=== PATIENT | female | born 1955 | race Caucasian/White ===

== ENCOUNTER 2018-12-28 12:06 | Inpatient (IN) ==
[2018-12-28] MEDS ORDERED: MAGNESIUM HYDROXIDE SUSP 30 ML UDCUP PO PRN (13:01)
[2018-12-28] MEDS ORDERED: ALPRAZolam 0.25 MG TABLET PO PRN (13:01)
[2018-12-28] MEDS ORDERED: chlorproMAZINE 25 MG TABLET PO PRN (13:01)
[2018-12-28] MEDS ORDERED: LOPERAMIDE 2 MG CAPSULE PO PRN ×2 (13:01)
[2018-12-28] MEDS ORDERED: ACETAMINOPHEN 325 MG TABLET PO PRN (13:01)
[2018-12-28] MEDS ORDERED: chlorproMAZINE INJ 25 MG in SODIUM CHLORIDE 0.9% 100 ML IV PRN (13:01)
[2018-12-28] MEDS ORDERED: MYLANTA/LIDO VISC 2:1 300 ML BOTTLE SWISH/SWAL PRN (13:01)
[2018-12-28] MEDS ORDERED: LACTULOSE 20 GM/30 ML UDCUP PO PRN (13:01)
[2018-12-28] MEDS ORDERED: MYLANTA/LIDO VISC 2:1 300 ML BOTTLE SWISH/SPIT PRN (13:01)
[2018-12-28] MEDS ORDERED: guaiFENesin 200 MG/10 ML UDCUP PO PRN (13:01)
[2018-12-28] MEDS ORDERED: traMADol 50 MG TABLET PO PRN (13:01)
[2018-12-28] MEDS ORDERED: chlorproMAZINE INJ 50 MG in SODIUM CHLORIDE 0.9% 100 ML IV PRN (13:01)
[2018-12-28] MEDS ORDERED: BENZTROPINE 2 MG/2 ML AMP IV PRN (13:01)
[2018-12-28] MEDS ORDERED: diphenhydrAMINE CAP 25 MG CAPSULE PO PRN (13:01)
[2018-12-28] MEDS ORDERED: DEXAMETHASONE 10 MG/1 ML VIAL IV ONE ×2 (13:04→13:30)
[2018-12-28] MEDS ORDERED: SODIUM CHLORIDE 0.45% 1,000 ML IV SCH (13:30)
[2018-12-28] MEDS: ONDANSETRON 4 MG/2 ML VIAL IV PRN (13:51)
[2018-12-28] MEDS: SODIUM CHLORIDE 0.45% 1,000 ML IV SCH (13:52)
[2018-12-28] MEDS: HYDROmorphone 2 MG/1 ML VIAL IV PRN ×2 (14:18→21:28)
[2018-12-28] MEDS: LORazepam 2 MG/1 ML VIAL IV PRN ×2 (15:58→21:21)
[2018-12-28] MEDS: oxyCODONE/ACETAMINOPHEN 5-325 MG TABLET PO PRN (17:44)
[2018-12-28] MEDS ORDERED: FONDAPARINUX 2.5 MG/0.5 ML SYRINGE SUBCUT SCH (19:00)
[2018-12-28] MEDS: PROMETHAZINE INJ 25 MG in SODIUM CHLORIDE 0.9% 50 ML IV PRN (19:12)
[2018-12-28] MEDS: ENOXAPARIN 40 MG/0.4 ML SYRINGE SUBCUT SCH (21:22)
[2018-12-28] MEDS: TEMAZEPAM 7.5 MG CAPSULE PO PRN (23:07)
[2018-12-29] MEDS: ONDANSETRON 4 MG/2 ML VIAL IV PRN (01:56)
[2018-12-29] MEDS: SODIUM CHLORIDE 0.45% 1,000 ML IV SCH ×2 (02:00→18:47)
[2018-12-29] MEDS: LORazepam 2 MG/1 ML VIAL IV PRN ×4 (04:09→23:22)
[2018-12-29 04:36] LABS: Basophils % 0.2 % (0.0-0.8); Hematocrit 34.2 VOL% (35.7-47.0); Hemoglobin 11.1 GM/DL (12.0-16.0); Immature Granulocytes % 0.5 %; Immature Granulocytes Absolute 0.03 #; Lymphocytes # 0.4 10*3/uL (1.4-4.0); Lymphocytes % 6.9 % (21.3-54.2); Mean Corpuscular HGB Conc 32.5 GM/DL (32-36); Mean Corpuscular Volume 94.5 FL (87-102); Mean Platelet Volume 10.2 FL (9.6-12.0); Monocytes % 3.3 % (1.7-12.7); Neutrophils % 89.1 % (38.7-73.9); Platelet Count 159 T/CUMM (130-400); Red Blood Count 3.62 MC/CUMM (3.8-5.5); Red Cell Distribution Width 14.1 % (9.3-17.3); White Blood Count 6.1 T/CUMM (4-12)
[2018-12-29 04:57] LABS: Bilirubin,Total 0.7 MG/DL (0.2-1.0); Calcium 7.1 MG/DL (8.5-10.1); Total Protein 6.7 G/DL (6.4-8.3)
[2018-12-29] MEDS: HYDROmorphone 2 MG/1 ML VIAL IV PRN (07:00)
[2018-12-29] MEDS: PROMETHAZINE INJ 25 MG in SODIUM CHLORIDE 0.9% 50 ML IV PRN (07:23)
[2018-12-29] MEDS ORDERED: FONDAPARINUX 2.5 MG/0.5 ML SYRINGE SUBCUT SCH (09:00)
[2018-12-29] MEDS: methylPREDNISolone SOD SUC 125 MG/2 ML VIAL IV SCH ×2 (10:01→18:47)
[2018-12-29] MEDS: oxyCODONE ER 20 MG TABLET PO SCH ×2 (12:58→22:21)
[2018-12-29] MEDS ORDERED: GABAPENTIN 300 MG CAPSULE PO SCH (13:30)
[2018-12-29] MEDS: oxyCODONE/ACETAMINOPHEN 5-325 MG TABLET PO SCH ×2 (16:53→21:48)
[2018-12-29] MEDS: DRONABINOL 2.5 MG CAPSULE PO SCH ×2 (16:55→21:48)
[2018-12-29] MEDS ORDERED: PANTOPRAZOLE 40 MG TABLET PO SCH (21:00)
[2018-12-29] MEDS: ENOXAPARIN 40 MG/0.4 ML SYRINGE SUBCUT SCH (21:48)
[2018-12-29] MEDS: AMITRIPTYLINE 25 MG TABLET PO SCH (21:49)
[2018-12-29] MEDS: GABAPENTIN 300 MG CAPSULE PO SCH (21:49)
[2018-12-30] MEDS: oxyCODONE/ACETAMINOPHEN 5-325 MG TABLET PO PRN (03:24)
[2018-12-30] MEDS: TEMAZEPAM 7.5 MG CAPSULE PO PRN ×2 (03:24→21:13)
[2018-12-30 06:20] LABS: Basophils % 0.1 % (0.0-0.8); Eosinophils % 0.1 % (0.00-10.9); Hematocrit 33.2 VOL% (35.7-47.0); Hemoglobin 10.6 GM/DL (12.0-16.0); Immature Granulocytes % 0.9 %; Immature Granulocytes Absolute 0.08 #; Lymphocytes # 0.5 10*3/uL (1.4-4.0); Lymphocytes % 5.7 % (21.3-54.2); Mean Corpuscular HGB Conc 31.9 GM/DL (32-36); Mean Corpuscular Volume 97.1 FL (87-102); Mean Platelet Volume 10.1 FL (9.6-12.0); Monocytes % 6.5 % (1.7-12.7); Neutrophils % 86.7 % (38.7-73.9); Platelet Count 161 T/CUMM (130-400); Red Blood Count 3.42 MC/CUMM (3.8-5.5); Red Cell Distribution Width 14.4 % (9.3-17.3); White Blood Count 9.1 T/CUMM (4-12)
[2018-12-30] MEDS: HYDROmorphone 2 MG/1 ML VIAL IV PRN ×3 (06:37→23:27)
[2018-12-30] MEDS: LORazepam 2 MG/1 ML VIAL IV PRN ×2 (06:43→17:46)
[2018-12-30 06:47] LABS: Albumin 2.9 G/DL (3.4-5.0); Bilirubin,Total 0.5 MG/DL (0.2-1.0); Calcium 7.1 MG/DL (8.5-10.1); Osmolality,Calculated 273.2 MOS/KG (273-304); Total Protein 6.3 G/DL (6.4-8.3)
[2018-12-30] MEDS: oxyCODONE ER 20 MG TABLET PO SCH ×2 (10:10→21:32)
[2018-12-30] MEDS: methylPREDNISolone SOD SUC 125 MG/2 ML VIAL IV SCH ×3 (10:10→21:32)
[2018-12-30] MEDS: PANTOPRAZOLE 40 MG VIAL IV SCH ×2 (10:13→21:22)
[2018-12-30] MEDS: LOSARTAN 25 MG TABLET PO SCH (10:17)
[2018-12-30] MEDS: DRONABINOL 2.5 MG CAPSULE PO SCH ×2 (10:17→21:13)
[2018-12-30] MEDS: oxyCODONE/ACETAMINOPHEN 5-325 MG TABLET PO SCH ×3 (10:18→21:14)
[2018-12-30] MEDS: GABAPENTIN 300 MG CAPSULE PO SCH ×3 (10:18→21:13)
[2018-12-30] MEDS: SODIUM CHLORIDE 0.45% 1,000 ML IV SCH ×2 (12:52→17:50)
[2018-12-30] MEDS: ONDANSETRON 4 MG/2 ML VIAL IV PRN (19:56)
[2018-12-30] MEDS: AMITRIPTYLINE 25 MG TABLET PO SCH (21:14)
[2018-12-30] MEDS: ENOXAPARIN 40 MG/0.4 ML SYRINGE SUBCUT SCH (21:30)
[2018-12-31] MEDS: HYDROmorphone 2 MG/1 ML VIAL IV PRN ×2 (04:13→11:32)
[2018-12-31 05:16] LABS: Basophils % 0.4 % (0.0-0.8); Eosinophils # 0.3 10*3/uL (0.0-0.87); Eosinophils % 5.3 % (0.00-10.9); Hematocrit 33.1 VOL% (35.7-47.0); Hemoglobin 10.4 GM/DL (12.0-16.0); Immature Granulocytes % 0.6 %; Immature Granulocytes Absolute 0.03 #; Lymphocytes # 0.6 10*3/uL (1.4-4.0); Lymphocytes % 10.9 % (21.3-54.2); Mean Corpuscular HGB Conc 31.4 GM/DL (32-36); Mean Corpuscular Volume 97.1 FL (87-102); Mean Platelet Volume 10.5 FL (9.6-12.0); Monocytes % 9.2 % (1.7-12.7); Neutrophils % 73.6 % (38.7-73.9); Platelet Count 148 T/CUMM (130-400); Red Blood Count 3.41 MC/CUMM (3.8-5.5); Red Cell Distribution Width 14.7 % (9.3-17.3); White Blood Count 5.1 T/CUMM (4-12)
[2018-12-31 05:46] LABS: Albumin 2.9 G/DL (3.4-5.0); Bilirubin,Total 0.6 MG/DL (0.2-1.0); Calcium 7.2 MG/DL (8.5-10.1); Osmolality,Calculated 280.5 MOS/KG (273-304); Total Protein 5.8 G/DL (6.4-8.3)
[2018-12-31] MEDS: oxyCODONE/ACETAMINOPHEN 5-325 MG TABLET PO SCH ×3 (08:45→20:48)
[2018-12-31] MEDS: oxyCODONE ER 20 MG TABLET PO SCH ×2 (08:45→20:47)
[2018-12-31] MEDS: GABAPENTIN 300 MG CAPSULE PO SCH ×3 (08:46→20:49)
[2018-12-31] MEDS: PANTOPRAZOLE 40 MG VIAL IV SCH ×2 (08:46→21:02)
[2018-12-31] MEDS: DRONABINOL 2.5 MG CAPSULE PO SCH ×2 (08:46→20:49)
[2018-12-31] MEDS: predniSONE 20 MG TABLET PO SCH ×2 (10:30→20:49)
[2018-12-31] MEDS: LOSARTAN 25 MG TABLET PO SCH (10:35)
[2018-12-31] MEDS: LORazepam 2 MG/1 ML VIAL IV PRN ×2 (15:57→20:58)
[2018-12-31] MEDS: AMITRIPTYLINE 25 MG TABLET PO SCH (20:49)
[2018-12-31] MEDS: SODIUM CHLORIDE 0.45% 1,000 ML IV SCH (20:51)
[2018-12-31] MEDS: ENOXAPARIN 40 MG/0.4 ML SYRINGE SUBCUT SCH (21:06)
[2018-12-31] MEDS: TEMAZEPAM 7.5 MG CAPSULE PO PRN (23:07)
[2019-01-01] MEDS: LORazepam 2 MG/1 ML VIAL IV PRN ×2 (02:47→20:09)
[2019-01-01] MEDS: oxyCODONE/ACETAMINOPHEN 5-325 MG TABLET PO PRN (02:47)
[2019-01-01] MEDS: HYDROmorphone 2 MG/1 ML VIAL IV PRN (05:22)
[2019-01-01 06:05] LABS: Hematocrit 33.4 VOL% (35.7-47.0); Hemoglobin 10.6 GM/DL (12.0-16.0); Immature Granulocytes % 0.7 %; Immature Granulocytes Absolute 0.04 #; Lymphocytes # 0.3 10*3/uL (1.4-4.0); Lymphocytes % 4.9 % (21.3-54.2); Mean Corpuscular HGB Conc 31.7 GM/DL (32-36); Mean Corpuscular Volume 98.2 FL (87-102); Mean Platelet Volume 10.5 FL (9.6-12.0); Monocytes % 5.1 % (1.7-12.7); Neutrophils % 89.3 % (38.7-73.9); Platelet Count 155 T/CUMM (130-400); Red Cell Distribution Width 14.7 % (9.3-17.3); White Blood Count 5.7 T/CUMM (4-12)
[2019-01-01 06:22] LABS: Alanine Aminotransferase 103 U/L (13-56); Alkaline Phosphatase 107 U/L (45-117); Aspartate Amino Transferase 134 U/L (0-37); Bilirubin,Total < 0.39 MG/DL (0.2-1.0); Blood Urea Nitrogen 20 MG/DL (7-18); Calcium 7.2 MG/DL (8.5-10.1); Estimated Glom Filtration Rate 64 ML/MIN; Glucose 135 MG/DL (74-106); Osmolality,Calculated 272.2 MOS/KG (273-304); Total Protein 6.2 G/DL (6.4-8.3)
[2019-01-01 06:28] LABS: Hypochromasia 1+; Lymphocytes 2 % (20-55); Platelet Estimate Adequate; Segmented Neutrophils 93 % (50-85); Total Cells Counted 100
[2019-01-01] MEDS ORDERED: fentaNYL 25 MCG/HR PATCH TRANSDERM SCH (09:00)
[2019-01-01] MEDS: PANTOPRAZOLE 40 MG VIAL IV SCH ×2 (09:02→21:28)
[2019-01-01] MEDS: oxyCODONE ER 20 MG TABLET PO SCH ×2 (09:03→21:25)
[2019-01-01] MEDS: predniSONE 20 MG TABLET PO SCH ×2 (09:04→21:26)
[2019-01-01] MEDS: DRONABINOL 2.5 MG CAPSULE PO SCH ×2 (09:05→21:26)
[2019-01-01] MEDS: LOSARTAN 25 MG TABLET PO SCH (09:05)
[2019-01-01] MEDS: oxyCODONE/ACETAMINOPHEN 5-325 MG TABLET PO SCH ×3 (09:05→21:26)
[2019-01-01] MEDS: GABAPENTIN 300 MG CAPSULE PO SCH ×3 (09:05→21:27)
[2019-01-01] MEDS ORDERED: oxyCODONE ER 20 MG TABLET PO ONE (10:26)
[2019-01-01] MEDS ORDERED: oxyCODONE ER 20 MG TABLET PO SCH (10:30)
[2019-01-01] MEDS: SODIUM CHLORIDE 0.45% 1,000 ML IV SCH (19:48)
[2019-01-01] MEDS: TEMAZEPAM 7.5 MG CAPSULE PO PRN ×2 (21:27→22:38)
[2019-01-01] MEDS: AMITRIPTYLINE 25 MG TABLET PO SCH (21:27)
[2019-01-01] MEDS: ENOXAPARIN 40 MG/0.4 ML SYRINGE SUBCUT SCH (21:28)
[2019-01-02] MEDS: LORazepam 2 MG/1 ML VIAL IV PRN ×2 (04:40→22:46)
[2019-01-02 06:59] LABS: Albumin 2.7 G/DL (3.4-5.0); Bilirubin,Total 0.5 MG/DL (0.2-1.0); Calcium 7.3 MG/DL (8.5-10.1); Osmolality,Calculated 274.1 MOS/KG (273-304); Total Protein 5.9 G/DL (6.4-8.3)
[2019-01-02] MEDS: PANTOPRAZOLE 40 MG VIAL IV SCH ×2 (09:43→20:39)
[2019-01-02] MEDS: DRONABINOL 2.5 MG CAPSULE PO SCH ×2 (09:43→20:38)
[2019-01-02] MEDS: GABAPENTIN 300 MG CAPSULE PO SCH ×3 (09:43→20:38)
[2019-01-02] MEDS: oxyCODONE/ACETAMINOPHEN 5-325 MG TABLET PO SCH ×3 (09:43→20:38)
[2019-01-02] MEDS: predniSONE 20 MG TABLET PO SCH ×2 (09:43→20:39)
[2019-01-02] MEDS: oxyCODONE ER 20 MG TABLET PO SCH (09:44)
[2019-01-02] MEDS: ONDANSETRON 4 MG/2 ML VIAL IV PRN (09:47)
[2019-01-02] MEDS: LOSARTAN 25 MG TABLET PO SCH (10:03)
[2019-01-02] MEDS: HYDROmorphone 2 MG/1 ML VIAL IV PRN (13:48)
[2019-01-02] MEDS: fentaNYL 75 MCG/HR PATCH TRANSDERM SCH (17:41)
[2019-01-02] MEDS ORDERED: LUBIPROSTONE 24 MCG CAPSULE PO ONE (19:00)
[2019-01-02] MEDS: ENOXAPARIN 40 MG/0.4 ML SYRINGE SUBCUT SCH (20:39)
[2019-01-02] MEDS: AMITRIPTYLINE 25 MG TABLET PO SCH (20:39)
[2019-01-02] MEDS: ALUMINUM/MAGNES/SIMETH MAX STR 30 ML UDCUP PO PRN (22:46)
[2019-01-03] MEDS: TEMAZEPAM 7.5 MG CAPSULE PO PRN ×2 (00:40→22:42)
[2019-01-03] MEDS: ONDANSETRON 4 MG/2 ML VIAL IV PRN ×2 (02:56→09:35)
[2019-01-03] MEDS: PROMETHAZINE INJ 25 MG in SODIUM CHLORIDE 0.9% 50 ML IV PRN (03:37)
[2019-01-03] MEDS: PANTOPRAZOLE 40 MG VIAL IV SCH ×2 (09:27→20:52)
[2019-01-03] MEDS: GABAPENTIN 300 MG CAPSULE PO SCH ×3 (09:28→20:51)
[2019-01-03] MEDS: oxyCODONE/ACETAMINOPHEN 5-325 MG TABLET PO SCH ×3 (09:28→20:51)
[2019-01-03] MEDS: LOSARTAN 25 MG TABLET PO SCH (09:28)
[2019-01-03] MEDS: predniSONE 20 MG TABLET PO SCH ×2 (09:28→20:51)
[2019-01-03] MEDS: DRONABINOL 2.5 MG CAPSULE PO SCH ×2 (09:28→20:51)
[2019-01-03] MEDS: ALUMINUM/MAGNES/SIMETH MAX STR 30 ML UDCUP PO PRN ×2 (09:28→20:55)
[2019-01-03] MEDS: SODIUM CHLORIDE 0.45% 1,000 ML IV SCH ×2 (11:02→17:48)
[2019-01-03] MEDS ORDERED: CLINDAMYCIN INJ 900 MG in PREMIX 1 EACH IV ONE (11:19)
[2019-01-03] MEDS ORDERED: BUPIVACAINE 0.5% /EPI 10 ML VIAL ONE (14:25)
[2019-01-03] MEDS ORDERED: TISSUE ADHESIVE 1 EACH APPLICATOR TOP ONE (14:25)
[2019-01-03] MEDS ORDERED: LIDOCAINE 1% 20 ML VIAL ONE (14:25)
[2019-01-03] MEDS ORDERED: HEPARIN 5,000 UNIT/1 ML VIAL ONE (14:25)
[2019-01-03] MEDS ORDERED: LACTATED RINGERS 1,000 ML IV ONE (16:38)
[2019-01-03] MEDS ORDERED: SODIUM CHLORIDE 0.9% 100 ML IV ONE (16:38)
[2019-01-03] MEDS ORDERED: LABETALOL 100 MG/20 ML VIAL IV ONE (16:38)
[2019-01-03] MEDS ORDERED: PROPOFOL 200 MG/20 ML VIAL IV ONE (16:38)
[2019-01-03] MEDS ORDERED: LIDOCAINE 2% 5 ML VIAL ONE (16:38)
[2019-01-03] MEDS ORDERED: MIDAZOLAM 2 MG/2 ML VIAL ONE (16:39)
[2019-01-03] MEDS: AMITRIPTYLINE 25 MG TABLET PO SCH (20:51)
[2019-01-04] MEDS: oxyCODONE/ACETAMINOPHEN 5-325 MG TABLET PO PRN (01:20)
[2019-01-04] MEDS: LORazepam 2 MG/1 ML VIAL IV PRN (04:02)
[2019-01-04 04:54] LABS: Basophils % 0.1 % (0.0-0.8); Hematocrit 33.5 VOL% (35.7-47.0); Hemoglobin 10.5 GM/DL (12.0-16.0); Lymphocytes # 0.2 10*3/uL (1.4-4.0); Lymphocytes % 2.3 % (21.3-54.2); Mean Corpuscular HGB Conc 31.3 GM/DL (32-36); Mean Corpuscular Volume 100.6 FL (87-102); Mean Platelet Volume 10.2 FL (9.6-12.0); Neutrophils % 91.6 % (38.7-73.9); Platelet Count 185 T/CUMM (130-400); Red Blood Count 3.33 MC/CUMM (3.8-5.5); Red Cell Distribution Width 15.2 % (9.3-17.3)
[2019-01-04 05:27] LABS: Hypochromasia 1+; Lymphocytes 1 % (20-55); Segmented Neutrophils 94 % (50-85); Total Cells Counted 100
[2019-01-04 05:28] LABS: Microcytosis Slight; Platelet Estimate Adequate
[2019-01-04 05:31] LABS: Bilirubin,Total 0.5 MG/DL (0.2-1.0); Calcium 7.8 MG/DL (8.5-10.1); Total Protein 5.9 G/DL (6.4-8.3)
[2019-01-04] MEDS ORDERED: SODIUM POLYSTYRENE SULFATE 15 GM/60 ML BOTTLE PO ONE (06:02)
[2019-01-04] MEDS: ONDANSETRON 4 MG/2 ML VIAL IV PRN (06:22)
[2019-01-04] MEDS ORDERED: INSULIN REGULAR 100 UNIT/ML IV ONE (09:04)
[2019-01-04] MEDS ORDERED: DEXTROSE 50% 25 GM/50 ML VIAL IV ONE (09:06)
[2019-01-04] MEDS ORDERED: SODIUM BICARB INJ 100 MEQ in DEXTROSE 5% 1,000 ML IV SCH (09:30)
[2019-01-04] MEDS: DRONABINOL 2.5 MG CAPSULE PO SCH ×2 (10:57→20:08)
[2019-01-04] MEDS: ENOXAPARIN 40 MG/0.4 ML SYRINGE SUBCUT SCH (10:58)
[2019-01-04] MEDS: oxyCODONE/ACETAMINOPHEN 5-325 MG TABLET PO SCH ×3 (10:58→20:08)
[2019-01-04] MEDS: LOSARTAN 25 MG TABLET PO SCH (10:58)
[2019-01-04] MEDS: GABAPENTIN 300 MG CAPSULE PO SCH ×3 (10:58→20:08)
[2019-01-04] MEDS: predniSONE 20 MG TABLET PO SCH ×2 (10:58→11:18)
[2019-01-04] MEDS: PANTOPRAZOLE 40 MG VIAL IV SCH ×2 (10:59→20:08)
[2019-01-04] MEDS: DEXTROSE 5% 1,000 ML IV SCH ×2 (11:00→13:00)
[2019-01-04] MEDS: SODIUM CHLORIDE 0.45% 1,000 ML IV SCH (11:18)
[2019-01-04] MEDS: AMITRIPTYLINE 25 MG TABLET PO SCH (20:08)
[2019-01-04] MEDS: TEMAZEPAM 7.5 MG CAPSULE PO PRN (22:21)
[2019-01-05] MEDS: oxyCODONE/ACETAMINOPHEN 5-325 MG TABLET PO PRN (04:54)
[2019-01-05 07:53] LABS: Alanine Aminotransferase 68 U/L (13-56); Albumin 3.2 G/DL (3.4-5.0); Alkaline Phosphatase 79 U/L (45-117); Aspartate Amino Transferase 41 U/L (0-37); Bilirubin,Total < 0.39 MG/DL (0.2-1.0); Blood Urea Nitrogen 29 MG/DL (7-18); Calcium 8.4 MG/DL (8.5-10.1); Estimated Glom Filtration Rate 71 ML/MIN; Glucose 83 MG/DL (74-106); Osmolality,Calculated 279.7 MOS/KG (273-304); Total Protein 5.9 G/DL (6.4-8.3)
[2019-01-05] MEDS: GABAPENTIN 300 MG CAPSULE PO SCH (09:06)
[2019-01-05] MEDS: oxyCODONE/ACETAMINOPHEN 5-325 MG TABLET PO SCH (09:06)
[2019-01-05] MEDS: LOSARTAN 25 MG TABLET PO SCH (09:07)
[2019-01-05] MEDS: DRONABINOL 2.5 MG CAPSULE PO SCH (09:07)
[2019-01-05] MEDS: predniSONE 20 MG TABLET PO SCH (09:07)
[2019-01-05] MEDS: fentaNYL 75 MCG/HR PATCH TRANSDERM SCH (09:07)
[2019-01-05] MEDS: ALUMINUM/MAGNES/SIMETH MAX STR 30 ML UDCUP PO PRN (09:07)
[2019-01-05] MEDS: ENOXAPARIN 40 MG/0.4 ML SYRINGE SUBCUT SCH (09:08)
[2019-01-05] MEDS: PANTOPRAZOLE 40 MG VIAL IV SCH (09:08)
[2019-01-05] MEDS ORDERED: SODIUM POLYSTYRENE SULFATE 15 GM/60 ML BOTTLE PO ONE (09:28)
[2019-01-05 09:54] VITALS: BP 109/79
[2019-01-05] MEDS ORDERED: HEPARIN LOCK FLUSH 500 UNIT/5 ML SYRINGE IV PRN (09:58)
== END 2019-01-05 13:25 | disposition home or self-care (01) | DRG 982 ==
LOC: N.4E
PROVIDERS: ADMIT Specialist; ATTEND Specialist

== ENCOUNTER 2019-01-25 12:39 | Inpatient (IN) ==
[2019-01-25] MEDS ORDERED: SODIUM CHLORIDE 0.9% 2,850 ML IV ONE (12:55)
[2019-01-25] MEDS ORDERED: VANCOMYCIN INJ 1,000 MG in SODIUM CHLORIDE 0.9% 250 ML IV SCH ×2 (13:00→15:01)
[2019-01-25] MEDS ORDERED: VANCOMYCIN 1,000 MG VIAL ONE (13:06)
[2019-01-25] MEDS ORDERED: PIPERACILLIN/TAZOBACTAM 3,375 MG VIAL IV ONE (13:06)
[2019-01-25] MEDS ORDERED: SODIUM CHLORIDE 0.9% 100 ML IV ONE (13:07)
[2019-01-25] MEDS ORDERED: CLINDAMYCIN INJ 900 MG in PREMIX 1 EACH IV ONE (13:23)
[2019-01-25] MEDS ORDERED: BISACODYL 5 MG TABLET PO PRN (13:32)
[2019-01-25] MEDS ORDERED: ALBUTEROL/IPRATROPIUM 3 ML NEB RESP TX PRN (13:32)
[2019-01-25] MEDS ORDERED: ONDANSETRON 4 MG/2 ML VIAL IV PRN (13:32)
[2019-01-25] MEDS: PIPERACILLIN/TAZOBACTAM 3,375 MG in SODIUM CHLORIDE 0.9% 100 ML IV SCH ×2 (13:34→21:20)
[2019-01-25] MEDS ORDERED: BUPIVACAINE MPF 0.25% 30 ML VIAL ONE (13:34)
[2019-01-25] MEDS ORDERED: LIDOCAINE 1%/EPI INJ 20 ML VIAL ONE (13:34)
[2019-01-25] MEDS ORDERED: TISSUE ADHESIVE 1 EACH APPLICATOR TOP ONE (13:34)
[2019-01-25 13:39] LABS: Basophils # 0.1 10*3/uL (0.0-0.2); Basophils % 0.6 % (0.0-0.8); Eosinophils # 0.1 10*3/uL (0.0-0.87); Eosinophils % 0.9 % (0.00-10.9); Hematocrit 50.5 VOL% (35.7-47.0); Hemoglobin 16.1 GM/DL (12.0-16.0); Immature Granulocytes % 1.4 %; Immature Granulocytes Absolute 0.17 #; Lymphocytes # 0.9 10*3/uL (1.4-4.0); Lymphocytes % 7.2 % (21.3-54.2); Mean Corpuscular HGB Conc 31.9 GM/DL (32-36); Mean Platelet Volume 9.9 FL (9.6-12.0); Monocytes % 4.9 % (1.7-12.7); Platelet Count 167 T/CUMM (130-400); Red Blood Count 5.26 MC/CUMM (3.8-5.5); Red Cell Distribution Width 13.8 % (9.3-17.3); White Blood Count 11.9 T/CUMM (4-12)
[2019-01-25 13:48] LABS: Alanine Aminotransferase 50 U/L (13-56); Albumin 3.1 G/DL (3.4-5.0); Alkaline Phosphatase 136 U/L (45-117); Aspartate Amino Transferase 66 U/L (0-37); Blood Urea Nitrogen 31 MG/DL (7-18); Calcium 9.1 MG/DL (8.5-10.1); Estimated Glom Filtration Rate 36 ML/MIN; Glucose 88 MG/DL (74-106); Osmolality,Calculated 263.9 MOS/KG (273-304); Total Protein 6.9 G/DL (6.4-8.3)
[2019-01-25 13:50] LABS: PT Patient Result 10.4 SECS (9.6-12.2); Partial Thromboplastin Time 22.4 SECS (20.8-36.0)
[2019-01-25] MEDS ORDERED: MIDAZOLAM 2 MG/2 ML VIAL ONE (14:26)
[2019-01-25] MEDS ORDERED: fentaNYL 100 MCG/2 ML VIAL ONE (14:27)
[2019-01-25] MEDS ORDERED: PHENYLEPHRINE 1 MG/10 ML SYRINGE IV ONE (14:27)
[2019-01-25 14:28] LABS: Apearance,Urine Clear (Clear); Bacteria,Urine Occasional /HPF (Few); Bilirubin,Urine Negative (Negative); Blood, Urine NEGATIVE (Negative); Glucose,Urine (UA) Negative (Negative); Hyaline Casts,Urine 1 /LPF (0-3); Ketones,Urine Negative (Negative); Mucus,Urine Occasional /LPF (Occasional); Nitrite,Urine Negative (Negative); Protein,Urine 30 MG/DL; RBC,Urine 6 /HPF (0-4); Squamous Epithelial Cell,Urine Occasional /HPF (0-10); Urine Color Yellow (Yellow); Urine Specific Gravity 1.015 (1.001-1.035); WBC,Urine 47 /HPF (0-6)
[2019-01-25 14:29] LABS: Urine Urobilinogen 0.2 EU/DL (0.2-1.0)
[2019-01-25] MEDS: LACTATED RINGERS 1,000 ML IV SCH ×2 (14:46→22:00)
[2019-01-25] MEDS ORDERED: VANCOMYCIN INJ 1,500 MG in SODIUM CHLORIDE 0.9% 500 ML IV PRN (14:58)
[2019-01-25] MEDS ORDERED: LACTATED RINGERS 1,000 ML IV ONE ×2 (15:01→16:49)
[2019-01-25] MEDS ORDERED: PIPERACILLIN/TAZOBACTAM 3,375 MG in SODIUM CHLORIDE 0.9% 100 ML IV SCH (15:01)
[2019-01-25] MEDS ORDERED: VANCOMYCIN INJ 1,000 MG in SODIUM CHLORIDE 0.9% 250 ML IV ONE (15:30)
[2019-01-25] MEDS: ENOXAPARIN 40 MG/0.4 ML SYRINGE SUBCUT SCH (16:13)
[2019-01-25] MEDS: GABAPENTIN 300 MG CAPSULE PO SCH ×2 (17:03→21:10)
[2019-01-25] MEDS: oxyCODONE/ACETAMINOPHEN 5-325 MG TABLET PO PRN (17:03)
[2019-01-25] MEDS ORDERED: ALBUMIN 5% 25 GM in PREMIX 1 EACH IV ONE ×2 (18:09→20:55)
[2019-01-25] MEDS: HYDROmorphone 2 MG/1 ML VIAL IV PRN (18:35)
[2019-01-25] MEDS: ACETAMINOPHEN 325 MG TABLET PO PRN (19:48)
[2019-01-25] MEDS: BACLOFEN 10 MG TABLET PO PRN (19:48)
[2019-01-25] MEDS ORDERED: ALBUMIN 5% 12.5 GM/250 ML VIAL IV ONE ×2 (21:00)
[2019-01-25] MEDS: PRAMIPEXOLE 0.25 MG TABLET PO SCH (21:10)
[2019-01-25] MEDS: MAGNESIUM OXIDE 400 MG TABLET PO SCH (21:10)
[2019-01-25] MEDS: AMITRIPTYLINE 10 MG TABLET PO SCH (21:10)
[2019-01-26] MEDS: oxyCODONE/ACETAMINOPHEN 5-325 MG TABLET PO PRN
[2019-01-26] MEDS: LACTATED RINGERS 1,000 ML IV SCH ×4 (03:20→19:35)
[2019-01-26 04:00] LABS: Basophils % 0.6 % (0.0-0.8); Eosinophils # 0.1 10*3/uL (0.0-0.87); Hematocrit 35.4 VOL% (35.7-47.0); Hemoglobin 11.3 GM/DL (12.0-16.0); Immature Granulocytes % 2.2 %; Immature Granulocytes Absolute 0.11 #; Lymphocytes # 0.3 10*3/uL (1.4-4.0); Lymphocytes % 6.3 % (21.3-54.2); Mean Corpuscular HGB Conc 31.9 GM/DL (32-36); Mean Corpuscular Volume 94.9 FL (87-102); Mean Platelet Volume 9.9 FL (9.6-12.0); Monocytes % 4.1 % (1.7-12.7); Neutrophils % 85.8 % (38.7-73.9); Platelet Count 89 T/CUMM (130-400); Red Blood Count 3.73 MC/CUMM (3.8-5.5); Red Cell Distribution Width 14.3 % (9.3-17.3); White Blood Count 4.9 T/CUMM (4-12)
[2019-01-26 04:05] LABS: INR 1.1
[2019-01-26 04:14] LABS: Calcium 7.6 MG/DL (8.5-10.1); Osmolality,Calculated 262.8 MOS/KG (273-304)
[2019-01-26 04:26] LABS: Band Neutrophils 2 % (0-10); Eosinophils 2 % (0-10); Hypochromasia 1+; Lymphocytes 7 % (20-55); Microcytosis Slight; Platelet Estimate Decreased; Segmented Neutrophils 87 % (50-85); Total Cells Counted 100
[2019-01-26] MEDS: BACLOFEN 10 MG TABLET PO PRN (05:58)
[2019-01-26] MEDS: PIPERACILLIN/TAZOBACTAM 3,375 MG in SODIUM CHLORIDE 0.9% 100 ML IV SCH ×3 (05:58→21:00)
[2019-01-26] MEDS: GABAPENTIN 300 MG CAPSULE PO SCH ×3 (08:15→21:13)
[2019-01-26] MEDS: PANTOPRAZOLE 40 MG TABLET PO SCH (08:15)
[2019-01-26] MEDS: predniSONE 10 MG TABLET PO SCH (08:15)
[2019-01-26] MEDS: MAGNESIUM OXIDE 400 MG TABLET PO SCH ×2 (08:15→21:13)
[2019-01-26] MEDS: ACETAMINOPHEN 325 MG TABLET PO PRN (08:15)
[2019-01-26] MEDS ORDERED: fentaNYL 75 MCG/HR PATCH TRANSDERM SCH (09:00)
[2019-01-26] MEDS: ENOXAPARIN 40 MG/0.4 ML SYRINGE SUBCUT SCH (12:52)
[2019-01-26] MEDS: VANCOMYCIN INJ 1,500 MG in SODIUM CHLORIDE 0.9% 500 ML IV SCH (16:26)
[2019-01-26] MEDS: PRAMIPEXOLE 0.25 MG TABLET PO SCH (21:13)
[2019-01-26] MEDS: AMITRIPTYLINE 10 MG TABLET PO SCH (21:13)
[2019-01-27] MEDS: LACTATED RINGERS 1,000 ML IV SCH ×2 (03:32→06:50)
[2019-01-27] MEDS: PIPERACILLIN/TAZOBACTAM 3,375 MG in SODIUM CHLORIDE 0.9% 100 ML IV SCH ×3 (05:15→20:18)
[2019-01-27] MEDS: oxyCODONE/ACETAMINOPHEN 5-325 MG TABLET PO PRN ×3 (07:14→20:26)
[2019-01-27] MEDS ORDERED: MAGNESIUM SULF RIDER 2 GM in PREMIX 1 EACH IV PRN (08:10)
[2019-01-27] MEDS ORDERED: MAGNESIUM SULF RIDER 4 GM in PREMIX 1 EACH IV PRN (08:10)
[2019-01-27] MEDS: GABAPENTIN 300 MG CAPSULE PO SCH ×3 (08:49→20:18)
[2019-01-27] MEDS: MAGNESIUM OXIDE 400 MG TABLET PO SCH ×2 (08:49→20:18)
[2019-01-27] MEDS: PANTOPRAZOLE 40 MG TABLET PO SCH (08:49)
[2019-01-27] MEDS: predniSONE 10 MG TABLET PO SCH (08:49)
[2019-01-27] MEDS ORDERED: predniSONE 5 MG TABLET PO SCH (09:03)
[2019-01-27] MEDS: ENOXAPARIN 40 MG/0.4 ML SYRINGE SUBCUT SCH (13:50)
[2019-01-27] MEDS: VANCOMYCIN INJ 1,500 MG in SODIUM CHLORIDE 0.9% 500 ML IV SCH (16:00)
[2019-01-27] MEDS: HYDROmorphone 2 MG/1 ML VIAL IV PRN (18:06)
[2019-01-27] MEDS: PRAMIPEXOLE 0.25 MG TABLET PO SCH (20:18)
[2019-01-27] MEDS: AMITRIPTYLINE 10 MG TABLET PO SCH (20:18)
[2019-01-27] MEDS ORDERED: PANTOPRAZOLE 40 MG TABLET PO SCH ×2 (21:00)
[2019-01-28] MEDS: PIPERACILLIN/TAZOBACTAM 3,375 MG in SODIUM CHLORIDE 0.9% 100 ML IV SCH (05:10)
[2019-01-28] MEDS: oxyCODONE/ACETAMINOPHEN 5-325 MG TABLET PO PRN (05:11)
[2019-01-28] MEDS ORDERED: AMOXICILLIN/CLAV 875 MG TABLET PO SCH (07:30)
[2019-01-28] MEDS: MAGNESIUM OXIDE 400 MG TABLET PO SCH (08:57)
[2019-01-28] MEDS: GABAPENTIN 300 MG CAPSULE PO SCH (09:00)
[2019-01-28 12:17] VITALS: BP 114/57
[2019-01-28] MEDS: ENOXAPARIN 40 MG/0.4 ML SYRINGE SUBCUT SCH (13:20)
== END 2019-01-28 13:35 | disposition home health service (06) | DRG 314 ==
LOC: EDUNIT# → EDBD → N.ED 12:39 → N.EDINP 13:32 → N.ICU 13:55 → N.4E 01-27 11:14
PROVIDERS: ADMIT Surgery; ATTEND Surgery

== ENCOUNTER 2019-02-08 13:03 | Inpatient (IN) ==
[2019-02-08] MEDS ORDERED: SODIUM CHLORIDE 0.9% 2,700 ML IV ONE (13:38)
[2019-02-08 14:24] LABS: Basophils # 0.1 10*3/uL (0.0-0.2); Basophils % 1.2 % (0.0-0.8); Eosinophils # 0.1 10*3/uL (0.0-0.87); Eosinophils % 1.6 % (0.00-10.9); Immature Granulocytes % 0.4 %; Immature Granulocytes Absolute 0.03 #; Lymphocytes # 1.1 10*3/uL (1.4-4.0); Lymphocytes % 16.1 % (21.3-54.2); Mean Corpuscular HGB Conc 32.6 GM/DL (32-36); Mean Corpuscular Volume 93.3 FL (87-102); Mean Platelet Volume 10.4 FL (9.6-12.0); Monocytes % 9.4 % (1.7-12.7); Neutrophils % 71.3 % (38.7-73.9); Platelet Count 241 T/CUMM (130-400); Red Blood Count 4.93 MC/CUMM (3.8-5.5); Red Cell Distribution Width 14.9 % (9.3-17.3); White Blood Count 6.7 T/CUMM (4-12)
[2019-02-08 14:47] LABS: Partial Thromboplastin Time 27.9 SECS (20.8-36.0)
[2019-02-08 14:53] LABS: Alanine Aminotransferase 38 U/L (13-56); Albumin 3.2 G/DL (3.4-5.0); Alkaline Phosphatase 111 U/L (45-117); Aspartate Amino Transferase 94 U/L (0-37); Blood Urea Nitrogen 19 MG/DL (7-18); Calcium 8.4 MG/DL (8.5-10.1); Estimated Glom Filtration Rate 54 ML/MIN; Glucose 110 MG/DL (74-106); Osmolality,Calculated 257.2 MOS/KG (273-304); Total Protein 6.8 G/DL (6.4-8.3)
[2019-02-08] MEDS ORDERED: fentaNYL 100 MCG/2 ML VIAL ONE (14:53)
[2019-02-08] MEDS ORDERED: fentaNYL 100 MCG/2 ML VIAL IV PRN (14:55)
[2019-02-08] MEDS ORDERED: ACETAMINOPHEN 325 MG TABLET PO PRN (15:43)
[2019-02-08] MEDS ORDERED: LORazepam 0.5 MG TABLET PO PRN (15:45)
[2019-02-08] MEDS ORDERED: LUBIPROSTONE 24 MCG CAPSULE PO PRN (15:45)
[2019-02-08] MEDS: MORPHINE 4 MG/1 ML VIAL IV PRN (21:05)
[2019-02-08] MEDS: PRAMIPEXOLE 0.25 MG TABLET PO SCH (21:40)
[2019-02-08] MEDS: MAGNESIUM OXIDE 400 MG TABLET PO SCH (21:40)
[2019-02-08] MEDS: AMITRIPTYLINE 10 MG TABLET PO SCH (21:40)
[2019-02-08] MEDS: GABAPENTIN 300 MG CAPSULE PO SCH ×3 (21:41→21:44)
[2019-02-08] MEDS: DRONABINOL 2.5 MG CAPSULE PO SCH (21:41)
[2019-02-08] MEDS: ENOXAPARIN 40 MG/0.4 ML SYRINGE SUBCUT SCH (21:41)
[2019-02-08] MEDS: BACLOFEN 10 MG TABLET PO PRN (21:41)
[2019-02-08] MEDS: SODIUM CHLORIDE 0.9% 1,000 ML IV SCH (22:02)
[2019-02-09] MEDS: AXITINIB 5 MG PO SCH ×3 (00:03→21:42)
[2019-02-09] MEDS: AMOXICILLIN/CLAV 875 MG TABLET PO SCH ×2 (01:11→14:12)
[2019-02-09] MEDS: oxyCODONE/ACETAMINOPHEN 5-325 MG TABLET PO PRN ×2 (01:11→09:28)
[2019-02-09 05:52] LABS: Basophils # 0.1 10*3/uL (0.0-0.2); Basophils % 1.3 % (0.0-0.8); Eosinophils # 0.1 10*3/uL (0.0-0.87); Eosinophils % 2.2 % (0.00-10.9); Hematocrit 40.1 VOL% (35.7-47.0); Hemoglobin 12.4 GM/DL (12.0-16.0); Immature Granulocytes % 0.6 %; Immature Granulocytes Absolute 0.03 #; Lymphocytes # 1.1 10*3/uL (1.4-4.0); Lymphocytes % 20.8 % (21.3-54.2); Mean Corpuscular HGB Conc 30.9 GM/DL (32-36); Mean Corpuscular Volume 98.8 FL (87-102); Mean Platelet Volume 10.4 FL (9.6-12.0); Monocytes % 12.9 % (1.7-12.7); Neutrophils % 62.2 % (38.7-73.9); Platelet Count 205 T/CUMM (130-400); Red Blood Count 4.06 MC/CUMM (3.8-5.5); Red Cell Distribution Width 15.5 % (9.3-17.3); White Blood Count 5.3 T/CUMM (4-12)
[2019-02-09 06:12] LABS: Calcium 7.1 MG/DL (8.5-10.1); Osmolality,Calculated 265.4 MOS/KG (273-304)
[2019-02-09] MEDS: FLUCONAZOLE 200 MG TABLET PO SCH (09:27)
[2019-02-09] MEDS: MAGNESIUM OXIDE 400 MG TABLET PO SCH ×2 (09:28→21:41)
[2019-02-09] MEDS: DRONABINOL 2.5 MG CAPSULE PO SCH ×3 (09:28→22:11)
[2019-02-09] MEDS: GABAPENTIN 300 MG CAPSULE PO SCH ×5 (09:29→21:41)
[2019-02-09] MEDS: SODIUM CHLORIDE 0.9% 1,000 ML IV SCH ×2 (09:38→14:23)
[2019-02-09] MEDS: PANTOPRAZOLE 40 MG TABLET PO SCH (09:50)
[2019-02-09] MEDS: SODIUM HYPOCHLORITE 0.25% IRRIG 473 ML BOTTLE TOP SCH (11:15)
[2019-02-09] MEDS: PRAMIPEXOLE 0.25 MG TABLET PO SCH (21:41)
[2019-02-09] MEDS: ENOXAPARIN 40 MG/0.4 ML SYRINGE SUBCUT SCH (21:41)
[2019-02-09] MEDS: AMITRIPTYLINE 10 MG TABLET PO SCH (21:41)
[2019-02-09] MEDS: BACLOFEN 10 MG TABLET PO PRN ×2 (21:41→21:42)
[2019-02-10] MEDS: AMOXICILLIN/CLAV 875 MG TABLET PO SCH ×2 (01:20→14:28)
[2019-02-10] MEDS: oxyCODONE/ACETAMINOPHEN 5-325 MG TABLET PO SCH ×6 (01:20→20:45)
[2019-02-10 05:23] LABS: Basophils % 0.8 % (0.0-0.8); Eosinophils # 0.1 10*3/uL (0.0-0.87); Hemoglobin 11.5 GM/DL (12.0-16.0); Immature Granulocytes % 0.8 %; Immature Granulocytes Absolute 0.03 #; Lymphocytes # 0.8 10*3/uL (1.4-4.0); Lymphocytes % 22.6 % (21.3-54.2); Mean Corpuscular HGB Conc 31.9 GM/DL (32-36); Mean Corpuscular Volume 96.8 FL (87-102); Mean Platelet Volume 10.5 FL (9.6-12.0); Monocytes % 11.7 % (1.7-12.7); Neutrophils % 61.1 % (38.7-73.9); Platelet Count 157 T/CUMM (130-400); Red Blood Count 3.72 MC/CUMM (3.8-5.5); Red Cell Distribution Width 15.8 % (9.3-17.3); White Blood Count 3.7 T/CUMM (4-12)
[2019-02-10 05:35] LABS: Calcium 7.2 MG/DL (8.5-10.1); Osmolality,Calculated 267.1 MOS/KG (273-304)
[2019-02-10] MEDS: SODIUM CHLORIDE 0.9% 1,000 ML IV SCH (08:49)
[2019-02-10] MEDS: ONDANSETRON 4 MG/2 ML VIAL IV PRN (09:44)
[2019-02-10] MEDS: MAGNESIUM OXIDE 400 MG TABLET PO SCH ×2 (09:50→20:43)
[2019-02-10] MEDS: GABAPENTIN 300 MG CAPSULE PO SCH ×4 (09:54→20:42)
[2019-02-10] MEDS: FLUCONAZOLE 200 MG TABLET PO SCH (09:54)
[2019-02-10] MEDS: DRONABINOL 2.5 MG CAPSULE PO SCH ×2 (09:55→20:56)
[2019-02-10] MEDS: METHYLPHENIDATE 5 MG TABLET PO SCH (09:57)
[2019-02-10] MEDS: PANTOPRAZOLE 40 MG TABLET PO SCH (09:58)
[2019-02-10] MEDS: AXITINIB 5 MG PO SCH ×2 (09:59→21:34)
[2019-02-10] MEDS: SODIUM HYPOCHLORITE 0.25% IRRIG 473 ML BOTTLE TOP SCH (09:59)
[2019-02-10] MEDS ORDERED: fentaNYL 75 MCG/HR PATCH TRANSDERM SCH ×2 (19:00→21:00)
[2019-02-10] MEDS: MORPHINE 4 MG/1 ML VIAL IV PRN (20:40)
[2019-02-10] MEDS: BACLOFEN 10 MG TABLET PO PRN (20:42)
[2019-02-10] MEDS: AMITRIPTYLINE 10 MG TABLET PO SCH (20:43)
[2019-02-10] MEDS: PRAMIPEXOLE 0.25 MG TABLET PO SCH (20:43)
[2019-02-10] MEDS: ENOXAPARIN 40 MG/0.4 ML SYRINGE SUBCUT SCH (20:44)
[2019-02-11] MEDS: AMOXICILLIN/CLAV 875 MG TABLET PO SCH ×2 (00:04→13:28)
[2019-02-11] MEDS: oxyCODONE/ACETAMINOPHEN 5-325 MG TABLET PO SCH ×4 (01:00→19:52)
[2019-02-11] MEDS: ONDANSETRON 4 MG/2 ML VIAL IV PRN (06:35)
[2019-02-11 06:52] LABS: Basophils % 1.6 % (0.0-0.8); Eosinophils # 0.1 10*3/uL (0.0-0.87); Eosinophils % 2.9 % (0.00-10.9); Hematocrit 38.4 VOL% (35.7-47.0); Hemoglobin 12.1 GM/DL (12.0-16.0); Immature Granulocytes % 0.4 %; Immature Granulocytes Absolute 0.01 #; Lymphocytes # 0.7 10*3/uL (1.4-4.0); Mean Corpuscular HGB Conc 31.5 GM/DL (32-36); Mean Corpuscular Volume 97.5 FL (87-102); Neutrophils % 51.1 % (38.7-73.9); Platelet Count 145 T/CUMM (130-400); Red Blood Count 3.94 MC/CUMM (3.8-5.5); Red Cell Distribution Width 15.4 % (9.3-17.3); White Blood Count 2.4 T/CUMM (4-12)
[2019-02-11 07:17] LABS: Calcium 7.6 MG/DL (8.5-10.1); Osmolality,Calculated 260.5 MOS/KG (273-304)
[2019-02-11 07:33] LABS: Stomatocytes Slight
[2019-02-11 07:34] LABS: Anisocytosis 1+; Platelet Estimate Adequate
[2019-02-11] MEDS ORDERED: TUBERCULIN SKIN TEST 0.1 ML SYRINGE INTRADERM ONE (08:23)
[2019-02-11] MEDS ORDERED: fentaNYL 75 MCG/HR PATCH TRANSDERM SCH (09:00)
[2019-02-11] MEDS ORDERED: FILGRASTIM-SNDZ 300 MCG/0.5 ML SYRINGE SUBCUT SCH (09:00)
[2019-02-11] MEDS ORDERED: LOSARTAN 25 MG TABLET PO SCH (09:00)
[2019-02-11] MEDS: DRONABINOL 2.5 MG CAPSULE PO SCH ×2 (09:36→20:03)
[2019-02-11] MEDS: FLUCONAZOLE 200 MG TABLET PO SCH (09:37)
[2019-02-11] MEDS: PANTOPRAZOLE 40 MG TABLET PO SCH (09:37)
[2019-02-11] MEDS: METHYLPHENIDATE 5 MG TABLET PO SCH (09:37)
[2019-02-11] MEDS: MAGNESIUM OXIDE 400 MG TABLET PO SCH ×2 (09:37→20:02)
[2019-02-11] MEDS: GABAPENTIN 300 MG CAPSULE PO SCH ×4 (09:37→20:03)
[2019-02-11] MEDS: SODIUM HYPOCHLORITE 0.25% IRRIG 473 ML BOTTLE TOP SCH (09:39)
[2019-02-11] MEDS ORDERED: amLODIPine 5 MG TABLET PO ONE (12:00)
[2019-02-11] MEDS: ENOXAPARIN 40 MG/0.4 ML SYRINGE SUBCUT SCH (20:01)
[2019-02-11] MEDS: AMITRIPTYLINE 10 MG TABLET PO SCH (20:03)
[2019-02-11] MEDS: PRAMIPEXOLE 0.25 MG TABLET PO SCH (20:03)
[2019-02-11] MEDS: LOSARTAN 25 MG TABLET PO SCH (20:10)
[2019-02-11 20:50] LABS: Apearance,Urine CLEAR (Clear); Bilirubin,Urine Negative (Negative); Blood, Urine Negative (Negative); Glucose,Urine (UA) Negative (Negative); Ketones,Urine Negative (Negative); Mucus,Urine Occasional /LPF (Occasional); Nitrite,Urine Negative (Negative); Protein,Urine Negative; Squamous Epithelial Cell,Urine Occasional /HPF (0-10); Transitional Epi Cells,Urine Occasional /HPF (<1); Urine Color Straw (Yellow); Urine Specific Gravity 1.004 (1.001-1.035); Urine Urobilinogen < 2.0 EU/DL (0.2-1.0)
[2019-02-12] MEDS: oxyCODONE/ACETAMINOPHEN 5-325 MG TABLET PO SCH ×3 (01:08→14:41)
[2019-02-12] MEDS: AMOXICILLIN/CLAV ES 600 125 ML/BOTTLE PO SCH ×2 (01:09→14:43)
[2019-02-12 05:46] LABS: Basophils # 0.1 10*3/uL (0.0-0.2); Basophils % 0.5 % (0.0-0.8); Eosinophils # 0.1 10*3/uL (0.0-0.87); Eosinophils % 1.1 % (0.00-10.9); Hematocrit 37.6 VOL% (35.7-47.0); Hemoglobin 11.8 GM/DL (12.0-16.0); Immature Granulocytes % 1.9 %; Immature Granulocytes Absolute 0.22 #; Lymphocytes # 1.1 10*3/uL (1.4-4.0); Lymphocytes % 9.5 % (21.3-54.2); Mean Corpuscular HGB Conc 31.4 GM/DL (32-36); Mean Corpuscular Volume 96.7 FL (87-102); Mean Platelet Volume 10.3 FL (9.6-12.0); Monocytes % 3.8 % (1.7-12.7); Neutrophils % 83.2 % (38.7-73.9); Platelet Count 169 T/CUMM (130-400); Red Blood Count 3.89 MC/CUMM (3.8-5.5); Red Cell Distribution Width 15.9 % (9.3-17.3); White Blood Count 11.3 T/CUMM (4-12)
[2019-02-12 06:05] LABS: Calcium 7.8 MG/DL (8.5-10.1); Osmolality,Calculated 269.8 MOS/KG (273-304)
[2019-02-12] MEDS: PANTOPRAZOLE 40 MG TABLET PO SCH (09:48)
[2019-02-12] MEDS: AXITINIB 5 MG PO SCH (09:48)
[2019-02-12] MEDS: DRONABINOL 2.5 MG CAPSULE PO SCH (09:48)
[2019-02-12] MEDS: METHYLPHENIDATE 5 MG TABLET PO SCH (09:49)
[2019-02-12] MEDS: FLUCONAZOLE 200 MG TABLET PO SCH (09:49)
[2019-02-12] MEDS: MAGNESIUM OXIDE 400 MG TABLET PO SCH (09:49)
[2019-02-12] MEDS: LOSARTAN 25 MG TABLET PO SCH (09:49)
[2019-02-12] MEDS: GABAPENTIN 300 MG CAPSULE PO SCH ×2 (09:49→14:42)
[2019-02-12] MEDS: SODIUM HYPOCHLORITE 0.25% IRRIG 473 ML BOTTLE TOP SCH (09:50)
[2019-02-12 12:02] VITALS: BP 101/64
== END 2019-02-12 15:55 | disposition hospice, home (50) | DRG 641 ==
LOC: EDBD → EDUNIT# → N.ED 13:03 → N.EDINP 15:43 → SUATTDRO 15:43 → N.4E 18:58
PROVIDERS: ADMIT Internal Medicine; ATTEND Internal Medicine